=== PATIENT | female | born 1945 | race African-American/Black ===

== ENCOUNTER 2017-03-16 09:01 | Outpatient (CLI) | payer MEDICARE, OTHER ==
[2017-03-16 09:43] LABS: #Basophils 0.1 thou/uL (0.0-0.2); #Eosinphils 0.1 thou/uL (0.0-0.7); #Lymphocytes 1.7 thou/uL (1.20-3.40); #Monocytes 0.2 thou/uL (0.11-0.59); #Neutrophils 2.9 thou/uL (1.40-6.50); %Basophils 2.2 % (0.0-1.0); %Eosinophils 1.2 % (0.0-10.0); %Monocytes 4.3 % (0.0-10.0); %Neutrophils 58.2 % (42.0-75.0); Hemoglobin 12.4 g/dL (12.0-16.0); Mean Corpuscular HGB CONC 32.4 g/dL (32.0-36.0); Mean Corpuscular Hemoglobin 27.1 pg (27.0-31.0); Mean Corpuscular Volume 83.7 fl (81.0-99.0); Mean Platelet Volume 8.1 fL (7.4-10.4); Platelet Count 235 thou/uL (130-400); Red Blood Cell (RBC) Count 4.57 mill/uL (4.20-5.40)
[2017-03-16 09:54] LABS: ALT (SGPT) 25 U/L (0-55); AST (SGOT) 17 U/L (5-34); Alkaline Phosphatase 59 U/L (40-150); Anion Gap 13 mmol/L (10-20); BUN (Urea Nitrogen) 16 mg/dL (9.8-20.1); Bilirubin, Total Less than 0.3 mg/dL (0.2-1.2); Calc. Creatinine Clearance 0 mL/min (70-130); Calcium 9.3 mg/dL (7.8-10.44); Carbon Dioxide 24 mmol/L (23-31); Cardiac Risk 5.6 (Less than 4.5); Chloride 106 mmol/L (98-107); Cholesterol 218 mg/dL (< 200 Desired); Estimated GFR-MDRD 83; Glucose 121 mg/dL (80-115); HDL Cholesterol 39 mg/dL (>60 Neg Risk); Hemoglobin A1c 7.5 % (4.0-6.0); LDL Cholesterol, Calculated 154 mg/dL; Potassium 4.1 mmol/L (3.5-5.1); Sodium 139 mmol/L (136-145); Triglycerides 126 mg/dL (Less than 150)
[2017-03-16 11:13] LABS: Free T4 (Free Thyroxine) 0.99 ng/dL (0.70-1.48); Thyroid Stimulating Hormone 1.4579 uIU/mL (0.35-4.94)
== END 2017-03-16 09:02 | disposition home or self-care (01) ==
LOC: MADLABBHPM 09:01 → EDSTATUS 09:04
PROVIDERS: ATTEND Family Medicine
DX: E78.5 Hyperlipidemia, unspecified (principal); E11.39 Type 2 diabetes mellitus with other diabetic ophthalmic complication; K21.9 Gastro-esophageal reflux disease without esophagitis
CPT/HCPCS: 36415; 80053; 80061; 83036; 84439; 84443; 85025

== ENCOUNTER 2017-06-16 11:57 | Outpatient (CLI) | payer MEDICARE, OTHER ==
--- NOTE | 2017-06-16 14:37 | RAD ---
RIGHT KNEE 4 VIEWS: Date: 06/16/17 HISTORY: Right knee pain. FINDINGS: Joint spaces are preserved. No acute fracture, dislocation, or fluid distention of the joint capsule are evident. IMPRESSION: No acute osseous abnormalities are demonstrated. POS: [facility]
== END 2017-06-16 11:58 | disposition home or self-care (01) ==
LOC: MADRAD 11:57
PROVIDERS: ATTEND Family Medicine
DX: M25.561 Pain in right knee (principal)

== ENCOUNTER 2017-09-05 19:25 | Outpatient (CLI) | payer MEDICARE, OTHER ==
[2017-09-06 07:41] LABS: Hemoglobin A1c 7.4 % (4.0-6.0)
[2017-09-06 09:07] LABS: ALT (SGPT) 26 U/L (8-55); AST (SGOT) 21 U/L (5-34); Albumin 4.2 g/dL (3.4-4.8); Alkaline Phosphatase 66 U/L (40-150); Anion Gap 17 mmol/L (10-20); BUN (Urea Nitrogen) 14 mg/dL (9.8-20.1); Bilirubin, Total 0.3 mg/dL (0.2-1.2); Calc. Creatinine Clearance 0 mL/min (70-130); Calcium 9.6 mg/dL (7.8-10.44); Carbon Dioxide 27 mmol/L (23-31); Cardiac Risk 5.3 (Less than 4.5); Chloride 101 mmol/L (98-107); Cholesterol 217 mg/dl (< 200 Desired); Estimated GFR-MDRD 82; Globulin 3.3 g/dL (2.4-3.5); Glucose 99 mg/dL (80-115); HDL Cholesterol 41 mg/dL (>60 Neg Risk); LDL Cholesterol, Calculated 157 mg/dL; Potassium 5.3 mmol/L (3.5-5.1); Protein, Total 7.5 g/dL (6.0-8.3); Sodium 140 mmol/L (136-145); Triglycerides 94 mg/dL (Less than 150)
[2017-09-06 09:27] LABS: Free T4 (Free Thyroxine) 1.01 ng/dL (0.70-1.48); Thyroid Stimulating Hormone 1.9162 uIU/mL (0.35-4.94)
== END 2017-09-05 19:26 | disposition home or self-care (01) ==
LOC: MADLABBHPM 19:25
PROVIDERS: ATTEND Family Medicine
DX: E03.9 Hypothyroidism, unspecified (principal); E78.5 Hyperlipidemia, unspecified; E11.9 Type 2 diabetes mellitus without complications
CPT/HCPCS: 36415; 80053; 80061; 83036; 84439; 84443

== ENCOUNTER 2017-12-20 19:46 | Emergency (ER) | payer MEDICARE, OTHER ==
[2017-12-20] MEDS ORDERED: Acetaminophen 500 MG TAB ONE (20:09)
--- NOTE | 2017-12-20 20:29 | RAD ---
TWO VIEWS CHEST 12/20/17 PROVIDED CLINICAL HISTORY: Fever. FINDINGS: No comparisons. The cardiac and mediastinal silhouette is within normal limits. No focal consolidation, pleural fluid or pneumothorax apparent. Degenerative changes are seen involving the thoracic spine. IMPRESSION: No evidence for an acute cardiopulmonary process. POS: [facility]
[2017-12-20] MEDS ORDERED: Oseltamivir 75 MG CAP ONE (20:55)
[2017-12-20] MEDS ORDERED: Azithromycin 250 MG TAB ONE (21:03)
== END 2017-12-20 21:25 | disposition home or self-care (01) ==
LOC: MADERS 19:46
DX: J11.1 Influenza due to unidentified influenza virus with other respiratory manifestations (principal); I10 Essential (primary) hypertension; E11.9 Type 2 diabetes mellitus without complications; Z79.4 Long term (current) use of insulin; Z79.899 Other long term (current) drug therapy
CPT/HCPCS: 71046

== ENCOUNTER 2018-03-05 02:37 | Emergency (ER) | payer MEDICARE, OTHER ==
[2018-03-05] MEDS ORDERED: predniSONE 20 MG TAB ONE (03:33)
[2018-03-05] MEDS ORDERED: Ketorolac Tromethamine 60 MG/2 ML VIAL ONE (03:33)
--- NOTE | 2018-03-05 08:13 | RAD ---
RIGHT KNEE 4 VIEWS: Date: 03/05/18 HISTORY: Right knee injury. FINDINGS: Joint spaces are preserved. Mild osteophytosis. No acute fracture, dislocation, or fluid distention o f the joint capsule. IMPRESSION: No acute osseous abnormalities are demonstrated. POS: [facility]
== END 2018-03-05 04:00 | disposition home or self-care (01) ==
LOC: MADERS 02:37
DX: M17.0 Bilateral primary osteoarthritis of knee (principal); E11.9 Type 2 diabetes mellitus without complications; I10 Essential (primary) hypertension; G89.29 Other chronic pain; Z79.891 Long term (current) use of opiate analgesic; Z79.4 Long term (current) use of insulin; Z79.899 Other long term (current) drug therapy
CPT/HCPCS: 96372; J1885; J7506

== ENCOUNTER 2018-12-18 18:44 | Emergency (ER) | payer MEDICARE, OTHER ==
--- NOTE | 2018-12-18 19:43 | CT ---
HEAD CT 12/18/18 COMPARISON: None. HISTORY: Injury, trauma, pain. TECHNIQUE: Axial CT imaging at 5 mm intervals from vertex through skull base without contrast. Coronal and sagit karmen reformatted imaging obtained. FINDINGS: The visualized paranasal sinuses/mastoid air cells are well aerated. There is no displaced calvarial fracture, intracranial hemorrhage, midline shift, or mass effect. Round hypodensity on image 14 sugge sts a subcentimeter coronal fissure cyst, an incidental finding. IMPRESSION: No acute findings. POS: [facility]
[2018-12-18 19:44] LABS: #Basophils 0.1 thou/uL (0.0-0.2); #Eosinphils 0.1 thou/uL (0.0-0.7); #Lymphocytes 2.4 thou/uL (1.20-3.40); #Monocytes 0.4 thou/uL (0.11-0.59); #Neutrophils 3.4 thou/uL (1.40-6.50); %Basophils 1.3 % (0.0-1.0); %Eosinophils 1.3 % (0.0-10.0); %Monocytes 5.9 % (0.0-10.0); %Neutrophils 53.5 % (42.0-75.0); Mean Corpuscular HGB CONC 31.7 g/dL (32.0-36.0); Mean Corpuscular Hemoglobin 26.7 pg (27.0-31.0); Mean Corpuscular Volume 84.2 fL (78.0-98.0); Mean Platelet Volume 7.8 fL (7.4-10.4); Platelet Count 255 thou/uL (130-400); RBC Distribution Width 13.7 % (11.5-14.5); Red Blood Cell (RBC) Count 4.89 mill/uL (4.20-5.40); White Blood Cell (WBC) Count 6.4 thou/uL (4.8-10.8)
[2018-12-18 19:58] LABS: ALT (SGPT) 25 U/L (8-55); AST (SGOT) 17 U/L (5-34); Albumin 4.3 g/dL (3.4-4.8); Alkaline Phosphatase 79 U/L (40-150); Anion Gap 13 mmol/L (10-20); BUN (Urea Nitrogen) 12 mg/dL (9.8-20.1); Bilirubin, Total 0.4 mg/dL (0.2-1.2); Calc. Creatinine Clearance 0 mL/min (70-130); Carbon Dioxide 27 mmol/L (23-31); Chloride 107 mmol/L (98-107); Estimated GFR-MDRD 72; Globulin 3.4 g/dL (2.4-3.5); Glucose 213 mg/dL (83-110); Magnesium 2.1 mg/dL (1.6-2.6); Potassium 4.2 mmol/L (3.5-5.1); Protein, Total 7.7 g/dL (6.0-8.3); Sodium 143 mmol/L (136-145)
[2018-12-18] MEDS ORDERED: Meclizine HCl 25 MG TAB ONE (20:31)
== END 2018-12-18 21:25 | disposition home or self-care (01) ==
LOC: MADERS 18:44
DX: S05.12XA Contusion of eyeball and orbital tissues, left eye, initial encounter (principal); R42 Dizziness and giddiness; E11.9 Type 2 diabetes mellitus without complications; I10 Essential (primary) hypertension; Z79.4 Long term (current) use of insulin; Z79.899 Other long term (current) drug therapy; W18.11XA Fall from or off toilet without subsequent striking against object, initial encounter
CPT/HCPCS: 36415; 70450; 80053; 83735; 84443; 85025

== ENCOUNTER 2019-03-05 07:59 | Emergency (ER) | payer MEDICARE, OTHER ==
[~2019-03-05 07:59] MED LIST: Iopamidol 370 76% 100 ML VIAL ONE
[2019-03-05 09:27] LABS: #Lymphocytes 1.7 thou/uL (1.20-3.40); #Monocytes 0.4 thou/uL (0.11-0.59); %Basophils 0.4 % (0.0-1.0); %Eosinophils 0.9 % (0.0-10.0); %Lymphocytes 42.2 % (21.0-51.0); %Monocytes 9.4 % (0.0-10.0); %Neutrophils 47.2 % (42.0-75.0); Hemoglobin 12.5 g/dL (12.0-16.0); Mean Corpuscular HGB CONC 30.1 g/dL (32.0-36.0); Mean Corpuscular Hemoglobin 25.1 pg (27.0-31.0); Mean Corpuscular Volume 83.4 fL (78.0-98.0); Mean Platelet Volume 6.8 fL (7.4-10.4); Platelet Count 240 thou/uL (130-400); RBC Distribution Width 13.7 % (11.5-14.5); Red Blood Cell (RBC) Count 4.96 mill/uL (4.20-5.40); White Blood Cell (WBC) Count 4.1 thou/uL (4.8-10.8)
[2019-03-05 09:45] LABS: ALT (SGPT) 22 U/L (8-55); AST (SGOT) 17 U/L (5-34); Albumin 4.2 g/dL (3.4-4.8); Alkaline Phosphatase 79 U/L (40-150); Anion Gap 13 mmol/L (10-20); BUN (Urea Nitrogen) 10 mg/dL (9.8-20.1); Bilirubin, Total 0.3 mg/dL (0.2-1.2); Calc. Creatinine Clearance 0 mL/min (70-130); Calcium 9.4 mg/dL (7.8-10.44); Carbon Dioxide 24 mmol/L (23-31); Chloride 107 mmol/L (98-107); Estimated GFR-MDRD 85; Globulin 3.2 g/dL (2.4-3.5); Glucose 104 mg/dL (83-110); Lipase 4 U/L (8-78); Potassium 3.8 mmol/L (3.5-5.1); Protein, Total 7.4 g/dL (6.0-8.3); Sodium 140 mmol/L (136-145)
--- NOTE | 2019-03-05 10:21 | CT ---
FCT abdomen with contrast CT pelvis with contrast: DATE: 03/05/2019 HISTORY: 74-year-old female with epigastric abdominal pain for 5 days with diarrhea COMPARISON: None available TECHNIQUE: IV injection of iodinated contrast media:Administered Oral contrast media:Not administered FINDINGS: The stomach is displaced to the left side of the upper abdominal cavity. Pancreatic body and tail pamela ear normal, with no dilation of the pancreatic duct and no surrounding edema. A normal pancreatic hea d is not visualized. There is a short suture line in a manipulated loop of bowel in the expected loca tion of the pancreatic head. Liver, abdominal aorta, bilateral kidneys, spleen, and appendix, are nor mal. Unremarkable urinary bladder. Adrenal glands are bilaterally thickened suggestive of hyperplasia . No small bowel dilation. No signs of colonic diverticulitis. No pneumoperitoneum or ascites. Ill-de fined patches of irregularly-shaped soft tissue density in the subcutaneous fat ventral to the abdomi nal wall bilaterally, presumably representing postsurgical scar tissue. Lung bases are clear. No pleu ral effusion or ascites. IMPRESSION: 1. No acute findings. 2. Anatomical changes in the upper portion of the abdominal cavity, perhaps representing Whipple proc edure. Recommend correlation with surgical history.
[2019-03-05 10:23] LABS: Bilirubin Negative (Negative); Blood, Urine Negative (Negative); Clarity Clear (Clear); Glucose, Urine (Dipstick) Negative (Negative); Leukocyte Negative (Negative); Nitrite Negative (Negative); Protein, Urine (Dipstick) Negative (Neg-Trace); Urobilinogen 0.2 mg/dL (0.2-1.0); pH, Urine 5.5 (5.0-9.0)
== END 2019-03-05 11:40 | disposition home or self-care (01) ==
LOC: MADERS 07:59
DX: R10.13 Epigastric pain (principal); R10.33 Periumbilical pain; R53.1 Weakness; E11.9 Type 2 diabetes mellitus without complications; I10 Essential (primary) hypertension; Z79.899 Other long term (current) drug therapy; Z79.4 Long term (current) use of insulin
CPT/HCPCS: 74177; 80053; 81003; 83605; 83690; 84484; 85025; 87804; 93005; Q9967

== ENCOUNTER 2020-05-07 09:15 | Outpatient (CLI) | payer MEDICARE, OTHER ==
[2020-05-07] MEDS ORDERED: Iopamidol 370 76% 100 ML VIAL ONE (10:29)
--- NOTE | 2020-05-07 12:13 | CT ---
CT ABDOMEN AND PELVIS WITH IV CONTRAST: INDICATION: Right lower quadrant pain. History of pancreatic neoplasm. COMPARISON: Comparison is made to CT abdomen and pelvis 03/05/2019. FINDINGS: Images through the lung bases again reveal a 5 mm nodule in the right lower lobe which is incompletel y imaged but is stable from the prior exam. Liver and spleen unremarkable. There are postoperative changes in the upper abdomen with evidence of a gastrojejunostomy and pancreatectomy with pancreatic duodenotomy. Findings suggest a Whipple-type procedure as noted on the prior study. The body and tail of the pancreas are imaged and appear unremarkable. Adrenal glands appear normal. Kidneys unremarkable. There is a focal area of luminal dilatation involving a proximal jejunal loop in the left mid abdomen . There is associated mural thickening in the jejunum at this level and possibly a focal area of lum inal narrowing just proximal or distal to this focal dilatation. Small bowel loops are otherwise normal caliber. The appendix is normal. The colon appears unremarka ble. The colon in the region of the splenic flexure and left colon is nondistended and not adequatel y evaluated by CT. Aorta normal caliber. Images through the pelvis show a mildly distended urinary bladder which appears unremarkable. The pa tient appears to be post hysterectomy. IMPRESSION: Postoperative changes in the upper abdomen suggesting a Whipple-type procedure with pancreatic head r esection. There is a gastrojejunostomy. There is focal dilatation and mural thickening in the proxi mal jejunum just beyond the gastric jejunostomy. Recommend consultation with patient's surgeon or ga stroenterologist. Endoscopy or dedicated small bowel exam should be considered. POS: [facility]
== END 2020-05-07 09:16 | disposition home or self-care (01) ==
LOC: MADCT 09:15
PROVIDERS: ATTEND Family Medicine
DX: R10.84 Generalized abdominal pain (principal); C25.0 Malignant neoplasm of head of pancreas; K63.89 Other specified diseases of intestine; Z98.890 Other specified postprocedural states
CPT/HCPCS: 36415; 74177; 82565; Q9967